=== PATIENT | male | born 1975 | race American Indian/Alaskan Native ===

== ENCOUNTER 2017-05-14 07:39 | Emergency (ER) | payer OTHER ==
[2017-05-14 07:46] VITALS: BP 127/79
--- NOTE | 2017-05-14 08:36 | XRay Report ---
LEFT KNEE, 2 views: History: Left knee swelling. There is impressive soft tissue swelling anterior to patella. This may represent prepatellar bursitis. Normal bone mineralization. No osseous abnormality or joint pathology is detected. No joint effusion. IMPRESSION: Anterior soft tissue swelling. Probable prepatellar bursitis.
--- NOTE | 2017-05-14 08:42 | Emergency Department Report ---
ED General Adult HPI - General Chief complaint: Extremity Problem,Nontraumatic Stated complaint: LT KNEE FLUID Time Seen by Provider: 05/14/17 08:33 Source: patient Mode of arrival: Ambulatory Limitations: No Limitations - History of Present Illness Initial comments: 41-year-old male presents to the ED complaining about left anterior knee swelling and effusion. Patient states it is soft and squishy. States that it is not painful but rather bothering him and uncomfortable. 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 Denies taking medication. States full range of motion of knee and leg. - Related Data Previous Rx's Medication Instructions Recorded Last Taken Type Ibuprofen [Motrin] 800 mg PO Q8HR PRN #20 tablet 05/14/17 Unknown Rx Allergies Allergy/AdvReac Type Severity Reaction Status Date / Time No Known Allergies Allergy Verified 05/14/17 07:43 ED Review of Systems ROS: Stated complaint: LT KNEE FLUID Other details as noted in HPI Constitutional: denies: chills, fever Eyes: denies: eye pain, eye discharge, vision change ENT: denies: ear pain, throat pain Respiratory: denies: cough, shortness of breath, wheezing Cardiovascular: denies: chest pain, palpitations Endocrine: no symptoms reported Gastrointestinal: denies: abdominal pain, nausea, diarrhea Genitourinary: denies: urgency, dysuria Musculoskeletal: joint swelling, arthralgia. denies: back pain Skin: denies: rash, lesions Neurological: denies: headache, weakness, paresthesias Psychiatric: denies: anxiety, depression Hematological/Lymphatic: denies: easy bleeding, easy bruising ED Past Medical Hx - Past Medical History Previous Medical History?: No - Surgical History Past Surgical History?: No - Social History Smoking Status: Current Every Day Smoker Substance Use Type: None - Medications Home Medications: Home Medications Medication Instructions Recorded Confirmed Last Taken Type Ibuprofen [Motrin] 800 mg PO Q8HR PRN #20 tablet 05/14/17 Unknown Rx ED Physical Exam - General Limitations: No Limitations - Expanded Lower Extremity Exam Right Knee exam: Present: full ROM, tenderness, swelling (anterior knee bursa is swollen. No erythema, induration, tenderness to palpation.). Absent: abrasion , laceration, deformity ED Course Vital Signs 05/14/17 07:43 Temperature 97.9 F Pulse Rate 112 H Respiratory 18 Rate Blood Pressure 127/79 O2 Sat by Pulse 100 Oximetry ED Medical Decision Making - Radiology Data Radiology results: image reviewed Patient has normal left knee x-ray Critical care attestation.: If time is entered above; I have spent that time in minutes in the direct care of this critically ill patient, excluding procedure time. ED Disposition Clinical Impression: Bursitis of left knee Disposition: DC-01 TO HOME OR SELFCARE Is pt being admited?: No Does the pt Need Aspirin: No Condition: Good Instructions: Knee Bursitis (ED) Prescriptions: Ibuprofen [Motrin] 800 mg PO Q8HR PRN #20 tablet PRN Reason: Pain Referrals: PRIMARY CAREMD [Primary Care Provider] - 3-5 Days LATANYA PERRY MD [Staff Physician] - 3-5 Days Forms: Work/School Release Form(ED) Time of Disposition: 08:42
[2017-05-14] MEDS ORDERED: MOTRIN PO ONE (08:43)
== END 2017-05-14 08:48 | disposition home or self-care (01) ==
LOC: ED 07:39
DX: M70.52 Other bursitis of knee, left knee (principal); F17.200 Nicotine dependence, unspecified, uncomplicated